=== PATIENT | male | born 1975 | race Caucasian/White ===

== ENCOUNTER 2020-12-24 13:04 | Inpatient (IN) | payer BC, OTHER ==
[~2020-12-24] VITALS: Ht 180.3 cm; Wt 102.1 kg
[~2020-12-24 13:04] MED LIST: FLEXERIL 10 MG10 MG PO; IBUPROFEN800 MG PO; MAGNESIUM500 MG PO; NORCO 10-325 T1 EACH PO; NORCO 7.5-3251 EACH PO; OMEGA 3 1,0001 EACH PO; TESTOSTERON100 MG/ML IM
[2020-12-24 14:03] LABS: HEMOGLOBIN 16.2 gm/dl (14.0-17.5); RED BLOOD COUNT 5.31 M/UL (4.20-5.50); WHITE BLOOD COUNT 5.7 K/UL (4.5-11.0)
[2020-12-24 14:42] LABS: BUN/CREATININE RATIO 12 (0-10)
[2020-12-25 05:00] LABS: HEMOGLOBIN 15.1 gm/dl (14.0-17.5); RED BLOOD COUNT 5.04 M/UL (4.20-5.50); WHITE BLOOD COUNT 4.7 K/UL (4.5-11.0)
[2020-12-25 05:33] LABS: BUN/CREATININE RATIO 12 (0-10)
[2020-12-25] MEDS ORDERED: PROMETHAZINE-D473 M1 PO (20:13)
[2020-12-26 03:17] LABS: HEMOGLOBIN 14.8 gm/dl (14.0-17.5); RED BLOOD COUNT 4.98 M/UL (4.20-5.50)
[2020-12-26 03:18] LABS: WHITE BLOOD COUNT 8.4 K/UL (4.5-11.0)
[2020-12-26 04:03] LABS: BUN/CREATININE RATIO 14 (0-10)
[2020-12-27 03:40] LABS: HEMOGLOBIN 14.5 gm/dl (14.0-17.5); RED BLOOD COUNT 4.83 M/UL (4.20-5.50); WHITE BLOOD COUNT 7.8 K/UL (4.5-11.0)
[2020-12-27 04:16] LABS: BUN/CREATININE RATIO 16 (0-10)
[2020-12-28 04:54] LABS: RED BLOOD COUNT 5.07 M/UL (4.20-5.50); WHITE BLOOD COUNT 7.6 K/UL (4.5-11.0)
[2020-12-28 05:14] LABS: BUN/CREATININE RATIO 16 (0-10)
[2020-12-29 02:49] LABS: HEMOGLOBIN 16.3 gm/dl (14.0-17.5); RED BLOOD COUNT 5.41 M/UL (4.20-5.50)
[2020-12-29 02:50] LABS: WHITE BLOOD COUNT 9.9 K/UL (4.5-11.0)
[2020-12-29 03:21] LABS: BUN/CREATININE RATIO 16 (0-10)
[2020-12-29] MEDS ORDERED: DEXAMETHASONE6 MG PO (14:01)
[2020-12-29] MEDS ORDERED: COMBIVENT RESPIM4 GM INH (14:14)
[2020-12-29] MEDS ORDERED: TESSALON PERLE100 MG PO (14:14)
== END 2020-12-29 15:08 | disposition home or self-care (01) | DRG 177 ==
LOC: ER1 13:04 → CDU 17:47 → M/S 17:47
PROVIDERS: Internal Medicine; Physician Assistant; Physician Assistant Medical; ADMIT Internal Medicine
PROC: XW033E5 Introduction of Remdesivir Anti-infective into Peripheral Vein, Percutaneous Approach, New Technology Group 5 (ICD-10-PCS; principal; 2020-12-25)
PROC: 8E0ZXY6 Isolation (ICD-10-PCS; 2020-12-25)
PROC: XW13325 Transfusion of Convalescent Plasma (Nonautologous) into Peripheral Vein, Percutaneous Approach, New Technology Group 5 (ICD-10-PCS; 2020-12-25)
DX: U07.1 COVID-19 (principal); J96.01 Acute respiratory failure with hypoxia; J12.82 Pneumonia due to coronavirus disease 2019; M62.82 Rhabdomyolysis; N17.9 Acute kidney failure, unspecified; E66.9 Obesity, unspecified; Z96.652 Presence of left artificial knee joint; Z96.698 Presence of other orthopedic joint implants; J40 Bronchitis, not specified as acute or chronic; D64.9 Anemia, unspecified; D69.6 Thrombocytopenia, unspecified; Z87.891 Personal history of nicotine dependence; Z68.31 Body mass index [BMI] 31.0-31.9, adult; Z72.89 Other problems related to lifestyle; Z80.3 Family history of malignant neoplasm of breast; R00.1 Bradycardia, unspecified
CPT/HCPCS: ECHO; 36415; 71045; 80053; 81001; 82550; 82553; 82728; 83735; 83874; 84484; 85025; 85027; 85379; 85610; 86140; 86900; 86901; 86927; 87081; 87880; 93005; 93306; 94760; 96374; 99285; G0378; J0696; J1100; J1650; J7030; U0002

== ENCOUNTER → 2021-03-23 | Outpatient (CLI) | payer BC, OTHER ==
[~2021-03-23] MED LIST changes: +COMBIVENT RESPIM4 GM INH; +DEXAMETHASONE6 MG PO; +PROMETHAZINE-D473 M1 PO; +TESSALON PERLE100 MG PO
== END ==
LOC: KOH-I 11:23
DX: N17.9 Acute kidney failure, unspecified (principal)
CPT/HCPCS: 76775

== ENCOUNTER 2021-04-08 08:33 | Emergency (ER) | payer BC, OTHER ==
[2021-04-08 09:40] LABS: HEMOGLOBIN 18.2 gm/dl (14.0-17.5); RED BLOOD COUNT 5.89 M/UL (4.20-5.50); WHITE BLOOD COUNT 6.4 K/UL (4.5-11.0)
== END 2021-04-08 14:20 | disposition home or self-care (01) ==
LOC: ER1 08:33
PROVIDERS: Physician Assistant Medical
DX: N17.9 Acute kidney failure, unspecified (principal); M62.82 Rhabdomyolysis
CPT/HCPCS: 71045; 80053; 80307; 81001; 82550; 82553; 83874; 84484; 85025; 93005; 99284

== ENCOUNTER 2021-06-06 07:32 | Emergency (ER) | payer BC, OTHER ==
[2021-06-06 08:20] LABS: HEMOGLOBIN 18.6 gm/dl (14.0-17.5); RED BLOOD COUNT 5.98 M/UL (4.20-5.50); WHITE BLOOD COUNT 7.4 K/UL (4.5-11.0)
[2021-06-06 08:47] LABS: BUN/CREATININE RATIO 11 (0-10)
== END 2021-06-06 10:55 | disposition home or self-care (01) ==
LOC: ER1 07:32
PROVIDERS: Physician Assistant
DX: M62.82 Rhabdomyolysis (principal); D75.1 Secondary polycythemia; I10 Essential (primary) hypertension
CPT/HCPCS: 80053; 81001; 82550; 82553; 83874; 84484; 85025; 87086; 93005; 99283

== ENCOUNTER 2021-10-23 19:00 | Emergency (ER) | payer BC, OTHER | END 2021-10-23 20:21 | disposition left against medical advice (07) | LOC: ER1 19:00 | DX: Z53.21 Procedure and treatment not carried out due to patient leaving prior to being seen by health care provider (principal) ==

== ENCOUNTER 2021-11-08 21:11 | Emergency (ER) | payer BC, OTHER ==
[2021-11-08] MEDS ORDERED: HYDROCODON-ACE1 EAC4 PO (22:50)
== END 2021-11-08 23:10 | disposition home or self-care (01) ==
LOC: ER1 21:11
DX: S92.352A Displaced fracture of fifth metatarsal bone, left foot, initial encounter for closed fracture (principal); W50.0XXA Accidental hit or strike by another person, initial encounter
CPT/HCPCS: 73630; 99283

== ENCOUNTER → 2021-12-09 | Outpatient (CLI) | payer BC, OTHER ==
[~2021-12-09] MED LIST changes: +HYDROCODON-ACE1 EAC4 PO
== END ==
LOC: KOH-I 15:13
DX: S92.352D Displaced fracture of fifth metatarsal bone, left foot, subsequent encounter for fracture with routine healing (principal)
CPT/HCPCS: 73630

== ENCOUNTER → 2021-12-30 | Outpatient (CLI) | payer BC, OTHER | LOC: KOH-I 15:14 | DX: S92.352D Displaced fracture of fifth metatarsal bone, left foot, subsequent encounter for fracture with routine healing (principal) | CPT/HCPCS: 73630 ==

== ENCOUNTER → 2022-03-28 | Outpatient (CLI) | payer BC, OTHER | LOC: KOH-I 09:21 | DX: R31.29 Other microscopic hematuria (principal) | CPT/HCPCS: 74176 ==